=== PATIENT | female | born 2000 | race Hispanic/Latino ===

== ENCOUNTER 2022-11-05 15:19 | Emergency (ER) | payer MEDICAID, SELFPAY ==
--- NOTE | ~2022-11-05 | XR_ITS ---
EXAMINATION: XR lumbar spine 1V DATE: 11/05/2022 17:56 INDICATION: Low back pain. Abdominal pain. TECHNIQUE: A single view of lumbar spine was obtained. COMPARISON: None. FINDINGS: There is 7 degrees levocurvature of lumbar spine. Vertebral body heights and intervertebral disc heights are normal. There is a single fetus in vertex presentation. IMPRESSION: 1. Fetus in vertex presentation. Reviewed, dictated and finalized at location A. ER ASSOCIATE
[2022-11-05 15:43] VITALS: BP 128/61; PULSE 124; RESP 20; TEMP 37.8; O2SAT 100
--- NOTE | 2022-11-05 17:30 | ED.BACK ---
HPI - Back Pain/Injury General Chief Complaint: Urogenital-Female Stated Complaint: back pain /lower abd pain Time Seen by Provider: 11/05/22 17:31 Source: patient, RN notes reviewed and old records reviewed Mode of arrival: ambulatory Limitations: no limitations and language barrier (interpretor service used for visit) History of Present Illness HPI Narrative: 22 YEAR OLD FEMALE WHO PRESENTS TO [facility] WITH COMPLAINTS OF BACK PAIN FOR THE PAST 5 MONTHS RELATED TO FALL SHE EXPERIENCED from unknown height states that she flipped a few times and landed on back legs and arms, denies hitting head at that time or any LOC. COMPLAINTS INCREASED BURNING PAIN FREQUENCY AND URGENCY OF URINATION FOR THE PAST MONTH. PATIENT STATES SHE HAS BEEN TAKING NAPROXEN FOR HER DISCOMFORT SHE DOES NOT KNOW IF SHE HAS HAD FEVERS BUT SHE HAS HAD INTERMITTENT CHILLS.Patient reports that she has noted blood in her urine since yesterday.Patient reports that her last menses was October 24, denies any chance of being . MD elicited complaint: back pain, back injury, fall and other (URINARY PAIN) Pertinent past history: other (FALL 5 MONTHS AGO) Onset (ago): month(s) ( URINARY SYMPTOMS 1 MONTH) Pain scale (0-10): 10 Location: lumbar spine Treatments prior to arrival: NSAIDS Related Data Home Medications Medication Instructions Recorded Confirmed No Home Medications 11/05/22 11/05/22 Allergies Allergy/AdvReac Type Severity Reaction Status Date / Time Pork/Porcine Containing Allergy Hives Verified 11/05/22 16:14 Products Review of Systems Review of Systems: CONSTITUTIONAL: Denies any known fever, states chills, or sweats. EYES: Denies visual changes, redness, or discharge. ENT: Denies rhinorrhea, congestion, sore throat, or otalgia. CARDIOVASCULAR: Denies chest pain, palpitations, or edema. RESPIRATORY: Denies cough or dyspnea. GASTROINTESTINAL: Denies abdominal pain, nausea, vomiting, or diarrhea. GENITOURINARY: reports dysuria with frequency for one month urinary hematuria since yesterday SKIN: Denies rash or itching. MUSCULOSKELETAL: Reports lumbar back pain for 5 month related to fall she reports,no joint pain, or myalgia. NEUROLOGIC: Denies headache, numbness, or weakness. PSYCHIATRIC: Denies anxiety or depression. , All systems reviewed & are unremarkable except as noted in HPI and below PMFSH Past Medical History Medical History (Updated 11/06/22 @ 14:43 by Sayra Canales NP) No pertinent past medical history Surgical History Surgical History (Updated 11/06/22 @ 14:09 by Sayra Canales NP) No history of previous surgery Social History Social History Smoking status: Never smoker Lack of Transportation: No Lack of Food: Never True Current Housing: I Have Housing Concerned About Future Housing: No Difficulty Paying Gas/Electric Bills: No Difficulty Paying for Meds: No Currently Unemployed: No Education: Don't Know Difficulty w/ Childcare or Family Care: No Comments At time of signature, agree with nursing past medical, surgical, social and family history. There is no relevant family history pertinent to the presenting complaint Exam Narrative: GENERAL: Well-appearing, well-nourished, and in no acute distress. HEAD: Normocephalic, atraumatic. EYES: PERRLA and EOMI. ENT: Nares clear, no rhinorrhea or epistaxis. Mucous membranes moist.TM's normal with good light reflex, throat pink no lesions or exudates. NECK: Supple.no lymphadenopathy CHEST: Clear to auscultation. No respiratory distress.SAO2 100% on room air HEART: Regular rate and rhythm. No murmur heard. Normal peripheral pulses. ABDOMEN: Soft, nontender, nondistended, normal active bowel sounds.reports frequency of urination and burning with urination, reports blood noted in urine since yesterday. EXTREMITIES: Normal range of motion. No edema.reports lumbar back pain no radiation to her legs reports pain mainly at waistline area of mahnaz
--- NOTE | 2022-11-05 18:13 | PC.NURSE ---
Pt aware of . heart tones found, 160. Pt had told RN she had her last menstrual period on October 23, told COMPUTER SERVICE TECHNICIAN she is currently menstruating. All communication using sign language interpreter.
== END 2022-11-05 18:28 | disposition short-term general hospital (02) ==
LOC: EXPCOLL 15:27
PROVIDERS: Emergency Provider Registered Nurse
DX: O23.40 Unspecified infection of urinary tract in pregnancy, unspecified trimester (principal); N39.0 Urinary tract infection, site not specified; O99.891 Other specified diseases and conditions complicating pregnancy; M54.50 Low back pain, unspecified; Z3A.00 Weeks of gestation of pregnancy not specified
CPT/HCPCS: 72020; 81003; 87086; 99202; G0463

== ENCOUNTER 2022-11-05 18:46 | Inpatient (IN) | payer MEDICAID, SELFPAY ==
[2022-11-05] VITALS (19 sets, daily range): BP systolic 103–134; BP diastolic 61–70; PULSE 108–146; TEMP 36.9–37.3; O2SAT 99–100; BMI 22.5
--- NOTE | ~2022-11-05 | US_ITS ---
EXAMINATION: US OB follow up DATE: 11/06/2022 08:30 INDICATION: Estimated weight, third trimester TECHNIQUE: Real-time ultrasound of the pelvis was performed. The interpreting radiologist was not pre sent for the study. COMPARISON: None. FINDINGS: There is a single living fetus in vertex presentation. The placenta is anterior. card iac activity and movement are noted. heart rate is 148 beats per minute (bpm). The amniot ic fluid index is subjectively low. The abdominal circumference is 30.8 cm. The femoral length is 6.9 cm. IMPRESSION: 1. Single living fetus in vertex presentation. 2. Estimated weight not calculated due to limited biometric data obtained per provider request. 3. Subjective oligohydramnios. Reviewed, dictated and finalized at location B. AIN AIRLINE PILOT
--- NOTE | ~2022-11-05 | US_ITS ---
EXAMINATION: US OB follow up DATE: 11/05/2022 20:38 INDICATION: No care. TECHNIQUE: Real-time ultrasound of the pelvis was performed. COMPARISON: None. FINDINGS: There is a single living fetus in vertex presentation. The placenta is anterior and fundal. he art rate is 155 beats per minute (bpm). The amniotic fluid index is 0.2 cm, which is low. The following biometric data were obtained: Biparietal diameter (BPD): 9.1 cm; head circumference (HC): 30.3 cm; abdominal circumference (AC): 33 .6 cm; femur length (FL): 7.0 cm. These measurements are discordant with high cephalic index and low HC/AC ratio. Estimated weight is 2969 g +/- 445 g. As single measurements, these parameters are each equal to the following estimated gestational ages: BPD: 36 weeks 5 days. HC: 33 weeks 5 days. AC: 37 weeks 3 days. FL: 35 weeks 6 days. estimated gestational age based solely on measurements from this exam is 36 weeks 0 days +/- 2 weeks 4 days. IMPRESSION: 1. Single living fetus in vertex presentation. 2. Estimated weight is 2969 g +/- 445 g. 3. Discordant biometrics with high cephalic index and low HC/AC ratio. 4. Oligohydramnios. Reviewed, dictated and finalized at location A. E STUDIES FACULTY MEMBER
[2022-11-05] MEDS: LACTATED RINGERS 1,000 ML 999 ML IV CONT (19:26)
[2022-11-05 19:52] LABS: Hematocrit 27.4 % (37.0-47.0); Hemoglobin 8.5 g/dL (12.0-15.0); Mean Corpuscular Hemoglobin 25.3 pg (26-34); Mean Corpuscular Volume 81.5 fl (80-100); Mean Platelet Volume 11.9 fl (7.4-10.4); Platelet Count Result 202 k/mm3 (150-375); Red Blood Count 3.36 M/mm3 (4.2-5.4); Red Cell Distribution Width 14.7 % (11.5-14.5); White Blood Count 21.8 K/mm3 (4.5-10.0)
[2022-11-05 20:12] LABS: Band Neutrophils Percent 4 % (0-6); Lymphocytes Absolute Manual 2.39 K/mm3 (1.1-4.5); Monocytes Absolute Manual 1.74 K/mm3 (0.1-0.90); Monocytes Percent Manual 8 % (3-9); Neutrophils Absolute Manual 17.65 K/mm3 (1.7-7.2); Neutrophils Percent Manual 77 % (46-73); Total Cells Counted 100
[2022-11-05 20:13] LABS: Hypochromasia 1+ (NORMAL); Platelet Estimate Adequate (Adequate); Schistocytes None Seen (NORMAL)
[2022-11-05] MEDS: LACTATED RINGERS 1,000 ML 75 ML IV CONT (20:34)
[2022-11-05] MEDS: MAGNESIUM SULF 4 GM/WATER100ML 4 GM/100 ML BAG IVPB (20:35)
[2022-11-05] MEDS: AMPICILLIN 2 GM/NS 100 ML 2 GM/100 ML BAG IVPB (20:38)
[2022-11-05] MEDS: BETAMETHASONE SOD PHOS/ACETATE 30 MG/5 ML VIAL 12 MG IM (20:38)
[2022-11-05 20:41] LABS: HIV 1/2 Ab P24 Ag Result Negative (Negative)
[2022-11-05 20:58] LABS: Hepatitis B Surface Antigen Negative (Negative); Rubella IgG Antibody 1.1 IU/ML
[2022-11-05] MEDS: fentaNYL CITRATE INJ (*CRX) 100 MCG/2 ML VIAL 50 MCG IV PUSH (21:26)
--- NOTE | 2022-11-05 23:58 | OBADM ---
This patient, Gigi Elizabeth, admitted to the OB room Labor/Delivery/Recovery 106 for observation. Patient/family oriented to hospital policies and general routines including ID bracelet, bed and alarms, visiting hours, pain management, procedures, bathroom and other care routines, personal items, smoking policy, room service/diet, and visiting hours. Patient/Family are encouraged to report perceived risks to care and to ask questions if they do not understand what they are told or what they should do.
[2022-11-06] VITALS (37 sets, daily range): BP systolic 96–127; BP diastolic 52–83; PULSE 90–120; RESP 18–20; TEMP 36.3–37.2; O2SAT 99–100
--- NOTE | 2022-11-06 00:21 | WPDHPUPDATE1 ---
History and Physical Update Update Date/Time: 11/06/22 00:21 this patient is a 22-year-old 1 at approximately 36 weeks gestation and who has no care. She recently immigrated from [place]. She had unknown dates. A ultrasound she would be 36 weeks gestation. She appears to be in the early labor. No cervical change. Very low baby. Reassuring heart tones. cervical exam was 1 cm/ 90%/ 0 station History and Physical has been reviewed, including an updated exam of the patient. There are NO changes in the patient's condition. Risks, benefits, and alternatives have been discussed and questions answered. Patient agrees to proceed with procedure.
[2022-11-06] MEDS: AMPICILLIN 1 GM/NS 50 ML 1 GM/50 ML BAG IVPB ×5 (00:57→21:36)
[2022-11-06] MEDS: ZOLPIDEM TARTRATE (*CRX) 5 MG TABLET PO (00:57)
[2022-11-06] MEDS: CLINDAMYCIN 900 MG/D5W 50 ML 900 MG/50 ML PIGGYBACK 50 MG IVPB ×2 (08:35→17:55)
[2022-11-06] MEDS: BETAMETHASONE SOD PHOS/ACETATE 30 MG/5 ML VIAL 12 MG IM (08:35)
[2022-11-06] MEDS: OXYTOCIN 30 UNITS/NS 500 ML 30 UNITS/500 ML BAG IV CONT (08:55)
[2022-11-06] MEDS: LACTATED RINGERS 1,000 ML 125 ML IV CONT (08:57)
[2022-11-06] MEDS: fentaNYL CITRATE INJ (*CRX) 100 MCG/2 ML VIAL 50 MCG IV PUSH (11:08)
--- NOTE | 2022-11-06 11:17 | P.PCNOB_ITS ---
OB - Delivery Note Procedure Delivery date: 11/06/22 Procedure: Events: No Care and Premature Rupture of Membranes Intrapartal Events: Chorioamnionitis Delivery augmentation: Pitocin Delivery monitor: External FHT and External Uterine Route of delivery: Laceration Description: None Specimen: Yes Quantitative Blood Loss (ml): 82 Anesthesia type: None Disposition: Floor Complications: baby to warmer, dehydrogenation supervisor at bedside to evaluate [place] Baby Date of : 11/06/22 Time of : 11:00 Weeks of gestation at delivery: 34 gender: Female presentation: vertex position: Left Occiput Anterior Placenta delivery description: Manual Removal Cord Vessel Description: 3 Vessels, Nuchal Cord, Tight and Clamped/Cut
[2022-11-06] MEDS: OXYTOCIN 30 UNITS/NS 500 ML 30 UNITS/500 ML BAG 125 UNITS IV CONT (12:05)
--- NOTE | 2022-11-06 14:47 | PC.NURSE ---
1410-Patient transferred to post room #286 via wheelchair. Support person present. Oriented to unit, room, information board, rooming in, admission packet and security measures. Patient verbalizes understanding.
[2022-11-06 16:55] LABS: Rapid Plasma Reagin Non-Reactive (NonReactive)
[2022-11-06] MEDS: SODIUM CHLORIDE 0.9% IV 250 ML 125 ML (21:38)
[2022-11-07 01:00] VITALS: BP 93/46; PULSE 88; RESP 14; TEMP 36.7; O2SAT 100
[2022-11-07] MEDS: CLINDAMYCIN 900 MG/D5W 50 ML 900 MG/50 ML PIGGYBACK 50 MG IVPB ×2 (01:02→10:38)
[2022-11-07] MEDS: AMPICILLIN 1 GM/NS 50 ML 1 GM/50 ML BAG IVPB ×2 (02:15→06:50)
[2022-11-07 04:20] VITALS: BP 95/46; PULSE 77; RESP 16; TEMP 36.1
[2022-11-07 05:36] LABS: Basophils Percent Auto 0.2 % (0.2-1.2); Eosinophils Percent Auto 0.2 % (0-4.4); Hematocrit 23.5 % (37.0-47.0); Hemoglobin 7.2 g/dL (12.0-15.0); Immature Granulocyte Absolute 0.23 K/mm3 (0.00-0.031); Immature Granulocyte Percent A 1.1 % (0-0.5); Lymphocytes Absolute Auto 1.28 K/mm3 (0.9-3.2); Lymphocytes Percent Auto 6.3 % (18.3-44.2); Mean Corpuscular HGB Conc 30.6 g/dl (32-36); Mean Corpuscular Hemoglobin 25.2 pg (26-34); Mean Corpuscular Volume 82.2 fl (80-100); Mean Platelet Volume 11.5 fl (7.4-10.4); Monocytes Absolute Auto 1.6 K/mm3 (0.1-0.6); Monocytes Percent Auto 7.7 % (2.6-8.5); Neutrophils Absolute Auto 17.1 K/mm3 (1.3-6.7); Neutrophils Percent Auto 84.5 % (45.5-73.1); Nucleated Red Blood Cells Perc 0.1 % (0.0-0.2); Platelet Count Result 189 k/mm3 (150-375); Red Blood Count 2.86 M/mm3 (4.2-5.4); Red Cell Distribution Width 14.7 % (11.5-14.5); White Blood Count 20.3 K/mm3 (4.5-10.0)
[2022-11-07 06:37] LABS: Anisocytosis 1+ (NORMAL); Platelet Estimate Adequate (Adequate); Schistocytes None Seen (NORMAL)
[2022-11-07 07:45] VITALS: BP 94/56; PULSE 65; RESP 16; TEMP 36.4; O2SAT 100
[2022-11-07] MEDS: MULTIVIT/MIN/PREN/FOL AC/IRON TABLET 1 TAB PO (08:20)
--- NOTE | 2022-11-07 08:25 | P.PNOB_ITS ---
OB - PN: Subj Subjective Date/time seen: 11/07/22 08:25 Patient comments: no complaints, pain well controlled, incisional pain, tolerating diet and flatus present OB - PN: Obj Data Labs 11/07/22 04:25 Labs: Laboratory Results - last 24 hr 11/05/22 11/07/22 19:09 04:25 WBC 20.3 H RBC 2.86 L Hgb 7.2 L Hct 23.5 L MCV 82.2 MCH 25.2 L MCHC 30.6 L RDW 14.7 H Plt Count 189 MPV 11.5 H Immature Gran % (Auto) 1.1 H Neut % (Auto) 84.5 H Lymph % (Auto) 6.3 L [place] % (Auto) 7.7 Eos % (Auto) 0.2 Baso % (Auto) 0.2 Lymph # (Auto) 1.28 [place] # (Auto) 1.6 H Eos # (Auto) 0.0 Baso # (Auto) 0.0 Abs Immat Gran (auto) 0.23 H Absolute Neuts (auto) 17.1 H Absolute Nucleated RBC 0.0 Nucleated RBC % 0.1 Platelet Estimate Adequate Anisocytosis 1+ Schistocytes None seen RPR Non-reactive Imaging Radiologist's impression: Impressions Obstetrics Ultrasound 11/06/22 08:38 IMPRESSION: 1. Single living fetus in vertex presentation. 2. Estimated weight not calculated due to limited biometric data obtained per provider request. 3. Subjective oligohydramnios. OB - PN A/P Plan day: 1 Plan: routine care Comments: No problems, routine care Time Spent With Patient Time: Total time spent is greater than 50% in coordination of care (as documented) at patient's floor/unit and/or counseling patient: Exam Const: General: comfortable, no acute distress and alert Resp: Effort & Inspection: normal respiratory effort Auscultation: no crack les, no rales and no rhonchi Cardio: Rate: regular rate Heart sounds: no click, no murmurs and no rubs GI: Inspection: non-distended GI Palp: No Tenderness to palpation present (GI) Auscultation: normal bowel sounds Other: Incision - CDI Extrem: General: normal to inspection, no pedal edema and no calf tenderness
--- NOTE | 2022-11-07 09:35 | PC.NURSE ---
Brake Lining Maker line used for education
[2022-11-07] MEDS: IBUPROFEN 600 MG TABLET PO (10:45)
--- NOTE | 2022-11-07 14:20 | PC.NURSE ---
UDS ordered and charted as sent, lab states not received, order cancelled due to pt receiving Fentanyl while in labor.
[2022-11-07 19:20] VITALS: BP 108/73; PULSE 74; RESP 18; TEMP 36.7; O2SAT 100
[2022-11-08 07:45] VITALS: BP 102/58; PULSE 60; RESP 16; TEMP 36.2; O2SAT 100
[2022-11-08] MEDS: MEASLES,MUMPS,RUBELLA VACCINE 0.5 ML VIAL (07:55)
[2022-11-08] MEDS: MULTIVIT/MIN/PREN/FOL AC/IRON TABLET 1 TAB PO (07:58)
--- NOTE | 2022-11-08 10:35 | PCCCNOTE ---
Care Coordination Consult: Met with pt. and FOB Shiva today. Utilized [employer] device to assist with translation as pt. and Shiva are primarily Martiniquais speaking. Pt. lives at home with Shiva. Relocated here recently from [place]. Did not realize she was . Kari has met with pt. already and will provide financial assistance for this hospital bill as she is not eligible due to citizen status for medicaid. Baby has been applied for medicaid services. Pt. was provided with the Martiniquais speaking clinic list and Goodrx card to assist in her medical care at discharge. Shiva has supportive family in the area and they are already collecting a car set, crib, and other belongings. Both are aware if needed a car seat and pac n play can be provided for free from hospital, RN aware to provide if they ask for these items. A donation basket was provided to pt. to assist in care at discharge. Provided resources and WIC information. Also provided pt. and FOB information for [facility], a resource service out of [facility] location that assists families with services and resources. Also encouraged pt. to seek out her local library in [place] for other resources as needed. Pt. and family deny any further case management needs. Pt. aware she is medically stable and discharging today however baby will remain in the hospital for observation. They are also aware a no care room will be provided so they can continue to stay with the baby.
--- NOTE | 2022-11-08 10:47 | PM.OBPNVD ---
OB - PN: Subj Subjective Date/time seen: 11/08/22 10:47 Patient comments: no complaints, pain well controlled and tolerating diet OB - PN: Obj Data Labs 11/07/22 04:25 OB - PN A/P Plan day: 2 Plan: routine care and discharge home Time Spent With Patient Time: Total time spent is greater than 50% in coordination of care (as documented) at patient's floor/unit and/or counseling patient: Exam Const: General: comfortable and no acute distress Resp: Effort & Inspection: normal respiratory effort Auscultation: no rales, no rhonchi and no wheezes Cardio: Rate: regular rate Heart sounds: no click, no murmurs and no rubs GI: GI Palp: Yes Soft to palpation and No Tenderness to palpation present (GI) Auscultation: normal bowel sounds Extrem: General: normal to inspection, no pedal edema and no calf tenderness
--- NOTE | 2022-11-08 10:48 | PM.OBDSVD ---
DS: Admitting Diagnosis Discharge Date 11/08/22 Admitting Diagnosis labor OB - DS: Summary OB Procedures : None OB Procedures Intrapartum: Spontaneous Vag Delivery OB Procedures: : None Time Spent with Patient Time attestation: Total time spent providing and/or coordinating discharge services: DS: Data Data Completed and Pending Pending studies at discharge: Pending at discharge 11/06/22 11:25 Surgical [PTH] Routine Discharge Plan Discharge Discharging Clinician: Karthik Adams Patient Disposition: Home, Self-Care Activity: pelvic rest Diet: regular Patient Instructions: Antibiotic Form Stand Alone Forms: General Discharge Information Follow-up/Referrals: Karthik Adams MD [Physician] - Discharge Medications: No Action No Home Medications Date of admission: 11/05/22 21:08 Primary Care Provider: UNKNOWN,DOCTOR Admitting Provider: Karthik Adams Attending physician on admission: Karthik Adams Condition: Stable
--- NOTE | 2022-11-08 17:13 | PC.NURSE ---
Patient instructed on viewing the discharge video Mother & Baby Care, The First Two Weeks . Patient was given the opportunity and encouraged to ask questions. Patient verbalized understanding of information shared and has been given the mother/baby guide for home reference.
[2022-11-09 08:28] VITALS: BP 108/68; PULSE 71; RESP 18; TEMP 36.8; O2SAT 100
--- NOTE | 2022-11-10 14:55 | PC.NURSE ---
[id number] Introductions were made, then consulted with patient to assess needs related to . Mother led the conversation with her?plans to feed?her infant and the?experience so far. Resources provided for inpatient with a planned appt around 1100 to work together with and mother states she has an outpatient resource for . We reviewed consistency with and/or pumping, milk production and encouraging a milk supply. Mother voiced understanding of information facilitated with a Stratus mixer operator hot metal Ellis #[id number] [phone] Consulted with patient to assess needs related to . Mother works well with her infant with encouragement and demonstrates the milk shake and bringing her to her breast. Stimulated infant with taking a layer of clothing off, massage touch and burping. Reviewed positioning and ear, shoulder, hip alignment, supporting the breast to facilitate a deep latch, asymmetrical latch (off-center), leading with the chin with a big, open, wide gape and body close to mother. latched optimally to the right breast in cross cradle position. After an effective session, self detached was burped. Mother was encouraged to stimulate with massage touch, talking, stimulating with burping, then offered the left breast. Mother demonstrated education and effectively latched infant using the cross cradle positioning. Education given to mother of how to visualize suck/swallow ratios and listen for drinking at the breast. Infant was able to maintain latch without discomfort to mother on both breast. We discussed the risks and benefits of formula feeding her . Nipple care reviewed with optimal latch and good positioning. Reminding mother of comfort measures of healing with a warm and wet washcloth to rinse breast, then leave open to air-dry as needed. Reviewed good handwashing when or touching the breast/nipples to prevent infection. Resources used to facilitate learning were used with the Moroccan guide with QR codes and tool. Mother voiced understanding of skin to skin, stimulating with massage touch, responsive feedings, talking to infant to encourage if it has been 2 -2.5 hours since the start of the last , to call if infant does not latch, or if there is discomfort with . Mother voiced understanding of information, demonstrated learning and will call if there is a request for assistance. All communication was facilitated with the assistance of the Stratus mixer operator hot metal Bryan #[id number] Reported to the primary RN.
== END 2022-11-08 17:30 | disposition home or self-care (01) | DRG 560 ==
LOC: ANHOBPP 18:58 → ANHLDR 21:08 → ANHOB2 11-06 14:15
PROVIDERS: Advanced Practice Midwife; Admitting Provider Obstetrics & Gynecology; Visit Provider Obstetrics & Gynecology
DX: O42.013 Preterm premature rupture of membranes, onset of labor within 24 hours of rupture, third trimester (principal); O60.14X0 Preterm labor third trimester with preterm delivery third trimester, not applicable or unspecified; O41.1230 Chorioamnionitis, third trimester, not applicable or unspecified; Z37.0 Single live birth; Z3A.36 36 weeks gestation of pregnancy; O69.1XX0 Labor and delivery complicated by cord around neck, with compression, not applicable or unspecified
CPT/HCPCS: 36415; 72020; 76816; 81003; 84112; 85025; 86592; 86703; 86762; 86850; 86900; 86901; 87086; 87340; 88307; 90710; 96372; 96374; 96375; 99202; A9270; G0378; G0379; G0432; G0463; J0290; J0702; J1580; J2590; J3010; J3475; J7050; J7120